=== PATIENT | female | born 1945 | race Two or more races ===

== ENCOUNTER 2024-08-12 05:02 | Inpatient (IN) | payer OTHER ==
[2024-08-12] MEDS ORDERED: Ketorolac Tromethamine 30 MG (1 mL) VIAL ONE (05:24)
[2024-08-12] MEDS ORDERED: Mag-Al 1200 mg/1200 mg/30 ML UDCUP ONE (05:25)
[2024-08-12] MEDS ORDERED: Famotidine/PF 20 mg/2ml Vial ONE (05:25)
[2024-08-12] MEDS ORDERED: Ondansetron PF 4 MG/2 ML Vial ONE (05:25)
[2024-08-12] MEDS ORDERED: Lidocaine Viscous Sol 2% 15 ml UD Cup ONE (05:25)
[2024-08-12 06:10] LABS: #Basophils 0.05 10x3/uL (0.0-0.2); #Eosinophils Less than 0.03 10x3/uL (0.0-0.7); %Basophils 0.5 % (0.0-1.0); %Lymphocytes 14.8 % (21.0-51.0); %Monocytes 2.8 % (0.0-10.0); %Neutrophils 81.5 % (42.0-75.0); Hematocrit 46.4 % (36.0-47.0); Hemoglobin 16.3 g/dL (12.0-16.0); Mean Corpuscular HGB CONC 35.1 g/dL (32.0-36.0); Mean Corpuscular Hemoglobin 31.2 pg (27.0-31.0); Mean Corpuscular Volume 88.7 fL (78.0-98.0); Mean Platelet Volume 10.6 fL (7.4-10.4); Platelet Count 193 10x3/uL (130-400); Red Blood Cell (RBC) Count 5.23 mill/uL (4.20-5.40)
[2024-08-12 06:49] LABS: ALT (SGPT) 25 U/L (8-55); AST (SGOT) 22 U/L (5-34); Albumin 4.7 g/dL (3.4-4.8); Alkaline Phosphatase 74 U/L (40-110); Anion Gap 19 mmol/L (10-20); BUN (Urea Nitrogen) 11 mg/dL (9.8-20.1); Bilirubin, Total 1.3 mg/dL (0.2-1.2); Calc. Creatinine Clearance 0 mL/min (70-130); Calcium 9.7 mg/dL (7.8-10.44); Carbon Dioxide 28 mmol/L (23-31); Chloride 100 mmol/L (98-107); Estimated GFR 73; Globulin 4.1 g/dL (2.4-3.5); Glucose 161 mg/dL (83-110); Lipase 19 U/L (8-78); Magnesium 2.4 mg/dL (1.6-2.6); Potassium 3.5 mmol/L (3.5-5.1); Protein, Total 8.8 g/dL (5.8-8.1); Sodium 143 mmol/L (136-145)
[2024-08-12 06:54] LABS: Troponin I Less than 0.010 ng/mL (< 0.028)
[2024-08-12 07:09] LABS: Bacteria/HPF None Seen HPF (None Seen); Bilirubin Negative (Negative); Blood, Urine Negative (Negative); CAUTI Indications for Culture Pelvic or flank pain; Clarity Clear (Clear); Glucose, Urine (Dipstick) Greater than 1000 mg/dL (Negative); Ketone, Urine Negative (Negative); Leukocyte Negative Leu/uL (Negative); Nitrite Negative (Negative); Protein, Urine (Dipstick) 20 mg/dL (Neg-Trace); RBC/HPF 0-3 HPF (0-3); Urobilinogen Normal mg/dL (Less than 2); WBC/HPF 0-3 HPF (0-3); pH, Urine 8.5 (5.0-9.0)
[2024-08-12 07:10] LABS: Urine Culture Reflex No No
[2024-08-12] MEDS ORDERED: Benzocaine 20% Spray 60 ML CAN ONE (09:43)
[2024-08-12 11:05] VITALS: BMI 25.4
[2024-08-12] MEDS ORDERED: Ondansetron ODT 4 MG TAB PO PRN (12:02)
[2024-08-12] MEDS ORDERED: Ondansetron PF 4 MG/2 ML Vial IVP PRN (12:02)
[2024-08-12] MEDS ORDERED: Acetaminophen 325 MG TAB PO PRN (12:02)
[2024-08-12] MEDS ORDERED: Famotidine/PF 20 mg/2ml Vial SLOW IVP PRN ×2 (12:02→12:19)
[2024-08-12] MEDS ORDERED: Acetaminophen 650 MG Suppository PR PRN (12:02)
[2024-08-12] MEDS ORDERED: Benzocaine 20% Spray 60 ML CAN PO PRN (12:12)
[2024-08-12] MEDS ORDERED: Dextrose 50% Abboject 50 ML SYRINGE SLOW IVP PRN (12:57)
[2024-08-12] MEDS ORDERED: Glucagon 1 MG/ML KIT IM PRN (12:57)
[2024-08-12] MEDS ORDERED: Insulin Regular, Human 100 UNIT/ML 10 ML VIAL SC PRN (12:57)
[2024-08-12] MEDS ORDERED: Dextrose 5% in Water 1,000 ML IV PRN (12:57)
[2024-08-12] MEDS: Potassium Chloride 20 MEQ in Lactated Ringer's 1,000 ML IV SCH (18:36)
[2024-08-13] MEDS ORDERED: Dextrose 5% in Water 1,000 ML BAG ONE (17:45)
[2024-08-14] MEDS ORDERED: Lactated Ringer's 1,000 ML BAG ONE (06:18)
[2024-08-14] MEDS ORDERED: POTASSIUM CHLORIDE 20 MEQ ONE (06:18)
[2024-08-14] MEDS ORDERED: Enoxaparin 40 MG (0.4 mL) SYRINGE ONE (08:37)
[2024-08-14] MEDS: Enoxaparin 40 MG (0.4 mL) SYRINGE SC SCH (15:53)
[2024-08-14] MEDS: Insulin Regular, Human 100 UNIT/ML 10 ML VIAL SC PRN (17:30)
[2024-08-14] MEDS ORDERED: Lactated Ringer's 1,000 ML IV SCH (18:00)
[2024-08-14] MEDS: Famotidine/PF 20 mg/2ml Vial ONE (18:35)
[2024-08-15 05:35] LABS: #Basophils 0.06 10x3/uL (0.0-0.2); %Eosinophils 3.1 % (0.0-10.0); %Lymphocytes 33.2 % (21.0-51.0); %Monocytes 7.7 % (0.0-10.0); %Neutrophils 54.8 % (42.0-75.0); Hematocrit 41.6 % (36.0-47.0); Hemoglobin 13.8 g/dL (12.0-16.0); Mean Corpuscular HGB CONC 33.2 g/dL (32.0-36.0); Mean Corpuscular Hemoglobin 30.3 pg (27.0-31.0); Mean Corpuscular Volume 91.4 fL (78.0-98.0); Mean Platelet Volume 9.9 fL (7.4-10.4); Platelet Count 146 10x3/uL (130-400); RBC Distribution Width 11.9 % (11.5-14.5); Red Blood Cell (RBC) Count 4.55 mill/uL (4.20-5.40)
[2024-08-15 05:50] LABS: Anion Gap 11 mmol/L (10-20); BUN (Urea Nitrogen) 9 mg/dL (9.8-20.1); Calc. Creatinine Clearance 57 mL/min (70-130); Calcium 8.4 mg/dL (7.8-10.44); Carbon Dioxide 24 mmol/L (23-31); Chloride 110 mmol/L (98-107); Estimated GFR 81; Glucose 106 mg/dL (83-110); Potassium 3.9 mmol/L (3.5-5.1); Sodium 141 mmol/L (136-145)
[2024-08-15] MEDS: Metoprolol Tartrate 25 MG TAB ONE (10:18)
[2024-08-15] MEDS: Aspirin 81 mg Enteric Coated Tablet PO SCH (10:58)
[2024-08-15] MEDS: Metoprolol Tartrate 25 MG TAB PO SCH (10:59)
[2024-08-15 11:10] VITALS: BMI 25.4
[2024-08-15 14:26] LABS: Anion Gap 13 mmol/L (10-20); BUN (Urea Nitrogen) 11 mg/dL (9.8-20.1); Calc. Creatinine Clearance 54 mL/min (70-130); Calcium 8.3 mg/dL (7.8-10.44); Carbon Dioxide 23 mmol/L (23-31); Chloride 107 mmol/L (98-107); Estimated GFR 76; Glucose 90 mg/dL (83-110); Potassium 3.9 mmol/L (3.5-5.1); Sodium 139 mmol/L (136-145)
[2024-08-15 17:45] VITALS: BP 121/72; TEMP 97.8
[2024-08-15] MEDS: Magnesium Citrate 300 ML BOT PO SCH (18:15)
[2024-08-15] MEDS: Polyethylene Glycol 3350 17 GM Packet PO SCH (18:17)
[2024-08-15 18:40] LABS: #Basophils 0.06 10x3/uL (0.0-0.2); %Basophils 0.8 % (0.0-1.0); %Eosinophils 1.6 % (0.0-10.0); %Lymphocytes 23.2 % (21.0-51.0); %Neutrophils 66.7 % (42.0-75.0); Hematocrit 41.8 % (36.0-47.0); Hemoglobin 14.2 g/dL (12.0-16.0); Mean Corpuscular Hemoglobin 30.8 pg (27.0-31.0); Mean Corpuscular Volume 90.7 fL (78.0-98.0); Mean Platelet Volume 10.5 fL (7.4-10.4); Platelet Count 146 10x3/uL (130-400); RBC Distribution Width 11.9 % (11.5-14.5); Red Blood Cell (RBC) Count 4.61 mill/uL (4.20-5.40)
[2024-08-15] MEDS ORDERED: Atorvastatin Calcium 20 MG TAB PO SCH (21:00)
[2024-08-15] MEDS ORDERED: Polyethylene Glycol 3350 17 GM Packet PO SCH (21:00)
== END 2024-08-15 18:59 | disposition home or self-care (01) | DRG 390 ==
LOC: ERS 05:02 → SURG A 10:54 → OBSVTOIN 08-13 10:12
PROVIDERS: ADMIT Internal Medicine; ATTEND Internal Medicine
DX: K56.609 Unspecified intestinal obstruction, unspecified as to partial versus complete obstruction (principal); E78.5 Hyperlipidemia, unspecified; I10 Essential (primary) hypertension; E11.9 Type 2 diabetes mellitus without complications; Z88.1 Allergy status to other antibiotic agents
CPT/HCPCS: 36415; 36416; 71045; 74018; 74177; 80048; 80053; 81001; 83690; 83735; 84484; 85025; 93005; 94760; 96374; 96375; G0378; J1650; J1815; J1885; J2405; J3480; J3490; J7120